=== PATIENT | female | born 2000 | race Caucasian/White ===

== ENCOUNTER 2019-06-05 18:54 | Emergency (ER) | payer BC ==
[~2019-06-05] VITALS: Ht 177.8 cm; Wt 86.4 kg
[2019-06-05 19:03] VITALS: BP 141/88; TEMP 98.5
[2019-06-05 20:12] VITALS: PULSE 88
== END 2019-06-05 20:13 | disposition home or self-care (01) ==
LOC: COL.ER 18:54
DX: N89.8 Other specified noninflammatory disorders of vagina (principal); Z90.49 Acquired absence of other specified parts of digestive tract